=== PATIENT | male | born 1995 | race Caucasian/White ===

== ENCOUNTER 2018-11-23 18:29 | Emergency (ER) | payer OTHER ==
[~2018-11-23] VITALS: Ht 177.8 cm; Wt 59.0 kg
[2018-11-23] MEDS ORDERED: ONDANSETRON 4MG ODT PO STA (19:01)
[2018-11-23] MEDS ORDERED: SODIUM CHLORIDE 0.9% 1,000 ML IV ONE (19:30)
[2018-11-23 20:44] LABS: CHLORIDE 102 mEq/L (98-107)
[2018-11-23 20:45] LABS: BASOPHILS % 0.5 % (0.0-2.0); EOSINOPHILS % 0.5 % (0.0-5.0); HEMATOCRIT. 39.5 % (42.0-52.0); HEMOGLOBIN. 13.5 g/dL (14.0-18.0); LYMPHOCYTES % 22.9 % (20.0-50.0); MEAN CORPUSCULAR HEMOGLOBIN 29.9 pg (28.0-32.0); MEAN CORPUSCULAR VOLUME 87.6 fL (80.0-94.0); MEAN PLATELET VOLUME 8.7 fl (7.4-10.4); MONOCYTES % 7.6 % (2.0-8.0); NEUTROPHILS % 68.5 % (40.0-76.0); PLATELET 242 x1000/uL (130-400); RED BLOOD CELL COUNT 4.51 mill/uL (4.7-6.1); RED CELL DISTRIBUTION WIDTH 13.1 % (11.6-14.6)
[2018-11-23 20:47] LABS: ETHANOL BLOOD < 10 mg/dL
[2018-11-23 21:30] VITALS: BP 102/56
== END 2018-11-23 21:43 | disposition home or self-care (01) ==
LOC: ER 18:29
DX: R00.2 Palpitations (principal); R11.2 Nausea with vomiting, unspecified; F11.10 Opioid abuse, uncomplicated
CPT/HCPCS: 36415; 80053; 80307; 80329; 85025; 87186; 93005; 96360; 99284; J7030; Q0162

== ENCOUNTER 2018-12-21 00:04 | Emergency (ER) | payer OTHER ==
[2018-12-21 00:10] VITALS: BP 114/76
== END 2018-12-21 00:15 | disposition left against medical advice (07) ==
LOC: ER 00:04
DX: Z53.21 Procedure and treatment not carried out due to patient leaving prior to being seen by health care provider (principal)